=== PATIENT | female | born 1985 | race Caucasian/White ===

== ENCOUNTER 2021-05-23 10:26 | Emergency (ER) | payer OTHER ==
[~2021-05-23 10:26] MED LIST: ATARAX25 MG PO; PEPCID AC20 MG PO
[2021-05-23 11:19] LABS: BASOPHIL 0.3 % (0-2); EOSINOPHIL 4.8 % (0-5); HCT 44.6 % (37.0-47.0); HGB 15.1 g/dl (12.5-16.0); LYMPHOCYTE 28.1 % (15-48); MCH 31.9 pg (25.0-31.0); MCHC 33.9 g/dL (32.0-36.0); MCV 94.3 fL (78.0-100.0); MONOCYTE 7.8 % (0-12); MPV 10.7 fL (6.0-9.5); NEUTROPHIL 58.8 % (41-80); NRBC 0; PLT 238 K/uL (150-400); RBC 4.73 M/uL (4.20-5.40); RDW 11.9 % (11.5-14.0); WBC 5.8 K/uL (4.0-10.5)
[2021-05-23 11:39] LABS: BILIRUBIN NEGATIVE (NEGATIVE); BLOOD NEGATIVE Ery/uL (NEGATIVE); CLARITY HAZY (CLEAR); COLOR YELLOW (YELLOW); GLUCOSE (U) NORMAL (NORMAL); LEUKOCYTES 1+ Leu/uL (NEGATIVE); NITRITE NEGATIVE (NEGATIVE); PROTEIN NEGATIVE (NEGATIVE); SPECIFIC GRAVITY >=1.030 (1.001-1.030); UROBILINOGEN 0.2 mg/dL (0.2-1.0)
[2021-05-23 12:14] LABS: BACTERIA 1+; MUCOUS TRACE; URINARY RBC RARE
[2021-05-23 13:22] LABS: ALBUMIN 3.8 g/dL (3.4-5.0); BILIRUBIN - TOTAL 0.7 mg/dL (0.2-1.0); BUN/CREAT RATIO (CALC) 16.9 RATIO; CREATININE 0.71 mg/dL (0.51-0.95); GLOBULIN (CALCULATION) 3.7 g/dL; POTASSIUM 3.8 mmol/L (3.5-5.1); TOTAL PROTEIN 7.5 g/dL (6.4-8.2)
[2021-05-23] MEDS ORDERED: NAPROSYN500 MG PO (14:08)
[2021-05-23] MEDS ORDERED: PERCOCET 5-3251 EACH PO (14:08)
[2021-05-23] MEDS ORDERED: ONDANSETRON ODT4 MG PO (14:08)
[2021-05-23] MEDS ORDERED: BACTRIM DS TAB1 EACH PO (14:32)
== END 2021-05-23 14:50 | disposition home or self-care (01) ==
LOC: FER 10:26
PROVIDERS: Internal Medicine
DX: N39.0 Urinary tract infection, site not specified (principal); R11.0 Nausea; Z91.041 Radiographic dye allergy status; Z91.048 Other nonmedicinal substance allergy status
CPT/HCPCS: 36415; 76830; 80053; 81001; 82150; 83690; 85025; J0696; J1170; J2405